=== PATIENT | male | born 1940 | race Caucasian/White ===

== ENCOUNTER 2017-04-21 09:40 | Outpatient (CLI) | payer MEDICARE, OTHER | END 2017-04-21 17:00 | disposition home or self-care (01) | LOC: HPC 09:40 | DX: K40.90 Unilateral inguinal hernia, without obstruction or gangrene, not specified as recurrent (principal); I10 Essential (primary) hypertension; I25.2 Old myocardial infarction; I65.21 Occlusion and stenosis of right carotid artery; I65.22 Occlusion and stenosis of left carotid artery | CPT/HCPCS: G0463 ==